=== PATIENT | female | born 1985 | race Two or more races ===

== ENCOUNTER 2019-07-10 11:18 | Emergency (ER) | payer OTHER ==
[~2019-07-10] VITALS: Ht 162.6 cm; Wt 52.6 kg
[2019-07-10 11:33] VITALS: BP 126/62
[2019-07-10] MEDS ORDERED: IBUPROFEN 600 MG TABLET PO ONE ×2 (12:00)
== END 2019-07-10 12:09 | disposition home or self-care (01) ==
LOC: ER 11:20
DX: H66.92 Otitis media, unspecified, left ear (principal)

== ENCOUNTER 2024-07-02 12:27 | Emergency (ER) | payer OTHER ==
[~2024-07-02] VITALS: Ht 162.6 cm; Wt 72.6 kg
[2024-07-02] MEDS ORDERED: methylPREDNISolone SOD SUCC 125 MG/2ML VIAL ONE (14:09)
[2024-07-02] MEDS ORDERED: FAMOTIDINE/PF INJ 20 MG/2 ML VIAL IV ONE (14:09)
[2024-07-02] MEDS ORDERED: diphenhydrAMINE HCL 50 MG/ML VIAL ONE (14:09)
[2024-07-02] MEDS: IV NS 0.9% 1,000 ML BAG IV ONE (14:25)
[2024-07-02] MEDS: diphenhydrAMINE HCL 50 MG/ML VIAL IV ONE (14:25)
[2024-07-02] MEDS: FAMOTIDINE/PF INJ 20 MG/2 ML VIAL IV ONE (14:25)
[2024-07-02] MEDS ORDERED: FAMO-131 PO (15:32)
[2024-07-02] MEDS ORDERED: PRED20TA PO (15:32)
[2024-07-02] MEDS ORDERED: DIPH25CA83 PO (15:32)
[2024-07-02] MEDS ORDERED: EPIN0.3P3 IM (15:33)
[2024-07-02] MEDS: methylPREDNISolone SOD SUCC 125 MG/2ML VIAL IV ONE (15:50)
[2024-07-02 15:55] VITALS: BP 125/99; TEMP 98.3; O2SAT 100
== END 2024-07-02 15:55 | disposition home or self-care (01) ==
LOC: ER 12:35
DX: T78.3XXA Angioneurotic edema, initial encounter (principal); T78.49XA Other allergy, initial encounter; Z79.52 Long term (current) use of systemic steroids; X58.XXXA Exposure to other specified factors, initial encounter
CPT/HCPCS: 99291; 96374; 96375; 96361; J2919; J1200; J3490; J7030